=== PATIENT | male | born 1995 | race Caucasian/White ===

== ENCOUNTER 2018-10-19 22:46 | Emergency (ER) | payer MEDICAID ==
[~2018-10-19] VITALS: Ht 172.7 cm; Wt 71.0 kg
[2018-10-20] MEDS ORDERED: IBUPROFEN 800MG TABLET PO ONE (02:15)
[2018-10-20 03:40] VITALS: BP 132/74
== END 2018-10-20 03:40 | disposition home or self-care (01) ==
LOC: ER 22:46
DX: S82.831A Other fracture of upper and lower end of right fibula, initial encounter for closed fracture (principal); F12.10 Cannabis abuse, uncomplicated; F17.200 Nicotine dependence, unspecified, uncomplicated; W01.0XXA Fall on same level from slipping, tripping and stumbling without subsequent striking against object, initial encounter; Y93.89 Activity, other specified; Y92.89 Other specified places as the place of occurrence of the external cause; Y99.8 Other external cause status
CPT/HCPCS: 73610; 99283

== ENCOUNTER 2024-01-08 14:16 | Emergency (ER) | payer SELFPAY ==
[~2024-01-08] VITALS: Ht 170.2 cm; Wt 77.1 kg
[2024-01-08 14:26] VITALS: BP 130/67; PULSE 93; RESP 16; TEMP 98.6; O2SAT 98
== END 2024-01-08 16:23 | disposition home or self-care (01) ==
LOC: ER 15:22
DX: R09.A2 Foreign body sensation, throat (principal); F12.90 Cannabis use, unspecified, uncomplicated
CPT/HCPCS: 99281